=== PATIENT | female | born 1990 | race Caucasian/White ===

== ENCOUNTER 2017-02-15 17:17 | Emergency (ER) | payer MEDICARE, MEDICAID ==
[~2017-02-15 17:17] MED LIST: ADIPEX-P37.5 M2 PO; ADVAIR 25028 BLISTE1 INH; ADVAIR 50028 BLISTE1 PO; ALLERGY10 M3 PO; AMBIEN5 M1 PO; AMLODIPINE BES2.5 M1 PO; AMOXICILLIN875 M1 PO; ASPIRIN EC325 M1 PO; ASPIRIN81 M1 PO; ATENOLOL25 M1 PO; ATENOLOL50 M1 PO; ATIVAN0.5 M1 PO; BENZTROPINE MESY1 M1 PO; BUSPIRONE HCL15 M2 PO; BYSTOLIC5 M1 PO; CARDURA4 M1 PO; CELEXA10 M1 PO; CIPRO500 M2 PO; CLARITIN10 M8 PO; CLONAZEPAM0.5 M2 PO; CLONAZEPAM1 M2 PO; CLONIDINE HCL0.1 M2 PO; CLONIDINE HCL0.3 M1 PO; CLONIDINE PO; CLOZARIL100 M1 PO; CLOZARIL25 M1 PO; COGENTIN PO; COLACE100 M1 PO; CPAP; DEEP SEA45 M1 NS; DESMOPRESSIN; DESMOPRESSIN A0.2 M2 PO; DESMOPRESSIN PO; DIAZEPAM5 M2 VG; DOXAZOSIN MESYLA4 M2 PO; DULERA 200 MCG/13 G1 INH; EFFEXOR XR37.5 M1 PO; EPIPEN 2-P0.3 MG/0.3 IJ; EPIPEN 2-P0.3 MG/0.3 IM; GABAPENTIN300 M1 PO; GEODON20 M1 PO; GEODON60 M1 PO; GLUCOPHAGE500 M3 PO; HALOPERIDOL5 M1 PO; HEARTBURN RELIE75 M1 PO; HYDROCODON-ACE1 EA16 PO; HYDROXYZINE HCL25 M1 PO; IMPLANON; KEFLEX500 M4 PO; KLONOPIN1 M1 PO; KLONOPIN2 M1 PO; LEVAQUIN750 M1 PO; LEVSIN0.125 M1 PO; LEXAPRO20 M2 PO; LIDODERM700 MG TP; LITHIUM CARBON300 M2 PO; LITHOBID300 M1 PO; LORTAB 5-325 M1 EAC1; LOW DOSE ASPIRI81 M3 PO; MACROBID 100 M100 M1 PO; MAG-AL LIQUID30 M1 PO; MELATONIN1 M2 PO; MELATONIN10 M4 PO; MELATONIN10 M6 PO; MELATONIN3 M4 PO; MILK OF MAGNESIA PO; MINIPRESS1 M1 PO; MIRALAX17 G2 PO; MOBIC15 M2 PO; MUCINEX1200 MG PO; MULTI-VITAMIN1 EAC3 PO; MULTIVITAMINS1 EAC6 PO; MYBETRIQ PO; NALTREXONE HCL50 MG PO; NAPROSYN500 M1 PO; NAPROXEN500 M1 PO; NEXPLANON68 M1 SQ; NORCO 5-325 TA1 EACH PO; NORCO 7.5-3251 EACH PO; NORVASC2.5 M1 PO; OMEPRAZOLE20 M3 PO; PERCOCET 5-3251 EACH PO; PHENTERMINE H37.5 M2 PO; PREDNISONE20 M1 PO; PRILOSEC20 M1 PO; PROMETHAZINE HC25 M3 PO; PROVENTIL HFA6.7 G1 IH; PROVENTIL HFA6.7 G1 INH; RANITIDINE HCL75 M1 PO; REQUIP0.25 M1 PO; RESTORIL30 M1 PO; RISPERDAL M-TA0.5 MG PO; ROPINIROLE HC0.25 M1 PO; SEROQUEL X300 MG/TAB PO; SEROQUEL XR400 M2 PO; SEROQUEL300 M1 PO; SINGULAIR10 M1 PO; STRATTERA25 MG/CAP PO; STRATTERA40 MG/CAP PO; TOPAMAX25 M2 PO; TOPAMAX50 M3 PO; TOVIAZ8 M1 PO; TRAMADOL HCL50 M2 PO; TRAZODONE HCL100 M1 PO; TRAZODONE HCL50 M1 PO; ULTRAM50 M1 PO; ZOFRAN ODT4 MG PO; ZOFRAN ODT8 MG PO; [UNRECOGNIZED DRUG - OTHER] PO
[2017-02-15 18:53] LABS: URINE APPEARANCE CLEAR; URINE BILIRUBIN NEGATIVE (NEG); URINE BLOOD MODERATE (NEG); URINE COLOR YELLOW; URINE GLUCOSE (UA) NEGATIVE (NEG); URINE KETONE NEGATIVE (NEG); URINE LEUKOCYTE ESTERASE NEGATIVE (NEG); URINE NITRITE NEGATIVE (NEG); URINE PROTEIN NEGATIVE (NEG)
[2017-02-15 19:01] LABS: URINE BACTERIA 1+; URINE EPITHELIAL CELLS RARE /[HPF] (0-10); URINE WBC 0 /[HPF] (0-5)
[2017-02-15] MEDS ORDERED: NORCO 5/3251 TAB PO (19:42)
[2017-04-16] MEDS ORDERED: PERCOCET 5-3251 EACH PO (00:52)
[2017-05-01] MEDS ORDERED: ENDOCET 5-3251 EACH PO (18:18)
[2017-05-01] MEDS ORDERED: TRAZODONE HCL100 M1 PO (18:21)
[2017-05-01] MEDS ORDERED: PROMETHAZINE HC25 M3 PO (21:04)
[2017-05-13] MEDS ORDERED: NORCO 5-325 TA1 EACH PO (19:18)
[2017-05-13] MEDS ORDERED: CYCLOBENZAPRINE10 M1 PO (19:18)
[2017-06-11] MEDS ORDERED: KLONOPIN1 M1 (19:37)
[2017-06-11] MEDS ORDERED: LITHIUM CA300 MG/TAB PO (19:37)
[2017-06-11] MEDS ORDERED: ATIVAN1 M2 PO (19:37)
[2017-06-11] MEDS ORDERED: ULTRAM50 M1 PO (22:04)
[2017-06-12] MEDS ORDERED: PHENERGAN12.5 M2 PR (21:54)
[2017-06-12] MEDS ORDERED: ZOFRAN ODT4 MG PO (21:54)
[2017-06-21] MEDS ORDERED: NORCO 5-325 TA1 EACH PO (23:49)
[2017-06-26] MEDS ORDERED: SEROQUEL50 M1 PO (19:27)
[2017-06-26] MEDS ORDERED: WELLBUTRIN XL150 M1 PO (19:28)
== END 2017-02-15 19:49 ==
LOC: EDMED 17:17
PROVIDERS: Emergency Medicine
DX: R10.2 Pelvic and perineal pain (principal); I10 Essential (primary) hypertension; Z90.49 Acquired absence of other specified parts of digestive tract; Z79.899 Other long term (current) drug therapy
CPT/HCPCS: J1170

== ENCOUNTER 2017-04-13 23:24 | Inpatient (IN) | payer MEDICARE, MEDICAID ==
[~2017-04-13 23:24] MED LIST changes: +NORCO 5/3251 TAB PO
[2017-04-14 00:06] LABS: HCT-HEMATOCRIT 32.3 % (34.0-49.0); HGB-HEMOGLOBIN 10.7 gm/dl (12.0-15.5); IMMATURE GRANULOCYTES ABSOLUTE 0.01 tho/cmm (0-0.03); IMMATURE GRANULOCYTES PERCENT 0.2 % (0-0.3); LYMPH % 36.6 % (20-45); LYMPH ABSOLUTE COUNT 2.4 tho/cmm (0.8-4.5); MCH (MEAN CORPUSCULAR HGB) 29.3 pg (28.0-32.0); MCHC MEAN CORPUSCULAR HGB CONC 33.1 % (32.0-36.0); MCV (MEAN CELL VOLUME) 88.5 fl (82.0-96.0); MEAN PLATELET VOLUME 9.2 cmc (9.4-12.4); MONO % 9.7 % (0-12); MONOCYTE ABSOLUTE COUNT 0.6 tho/cmm (0.0-1.2); NEUTROPHIL ABSOLUTE COUNT 3.5 tho/cmm (1.6-8.0); NEUTROPHIL-AUTOMATED 3.5 tho/cmm (1.6-8.0); NEUTROPHILS % 53.5 % (40-80); PLATELET COUNT 264 tho/cmm (150-450); RED BLOOD COUNT 3.65 mil/cmm (4.00-5.20); RED CELL DISTRIBUTION WIDTH 14.3 % (12.4-16.4); WHITE BLOOD COUNT 6.5 tho/cmm (4.0-10.0)
[2017-04-14 00:23] LABS: ALB/GLOB RATIO 0.8 (0.8-2.0); ALBUMIN 2.9 g/dl (3.5-5.0); ALKALINE PHOSPHATASE 65 U/L (33-138); ALT/SGPT 30 U/L (12-78); ANION GAP 13 mmol/L (0-20); AST/SGOT 20 U/L (10-40); BILIRUBIN,TOTAL 0.2 mg/dl (0-1.5); BLOOD UREA NITROGEN 14 mg/dl (6-24); CALCIUM 8.5 mg/dl (8.5-10.5); CARBON DIOXIDE-VENOUS 24 mmol/L (22-32); CHLORIDE 104 mmol/l (96-110); CREATININE 0.89 mg/dl (0.50-1.10); GLUCOSE 127 mg/dL (70-110); POTASSIUM 3.2 mmol/L (3.7-5.1); SODIUM 138 mmol/L (135-145); eGFR VALUE FOR BLACK >90 mL/Min
[2017-04-14] MEDS ORDERED: SEROQUEL400 M1 PO (00:57)
[2017-04-14] MEDS ORDERED: DULERA 200 MCG/13 G1 INH (00:57)
[2017-04-14] MEDS ORDERED: CYCLOBENZAPRINE5 M1 PO (00:58)
[2017-04-14] MEDS ORDERED: HALOPERIDOL2 M1 PO (00:58)
[2017-04-14] MEDS ORDERED: PROVENTIL HFA6.7 G1 INH (00:59)
[2017-04-14 04:00] LABS: URINE BILIRUBIN NEGATIVE (NEG); URINE BLOOD SMALL (NEG); URINE GLUCOSE (UA) NEGATIVE (NEG); URINE KETONE NEGATIVE (NEG); URINE LEUKOCYTE ESTERASE POSITIVE (NEG); URINE NITRITE NEGATIVE (NEG); URINE PROTEIN MODERATE (NEG)
[2017-04-14 04:05] LABS: URINE APPEARANCE HAZY; URINE COLOR YELLOW
[2017-04-14 04:19] LABS: URINE BACTERIA 1+
[2017-04-14 06:34] LABS: ANION GAP 13 mmol/L (0-20); BLOOD UREA NITROGEN 12 mg/dl (6-24); CARBON DIOXIDE-VENOUS 24 mmol/L (22-32); CHLORIDE 105 mmol/l (96-110); CREATININE 0.78 mg/dl (0.50-1.10); GLUCOSE 162 mg/dL (70-110); POTASSIUM 3.4 mmol/L (3.7-5.1); SODIUM 139 mmol/L (135-145); eGFR VALUE FOR BLACK >90 mL/Min
[2017-04-14] MEDS ORDERED: NORCO 5-325 TA1 EACH PO (16:10)
[2017-04-14] MEDS ORDERED: MIRALAX17 G2 PO (16:10)
[2017-04-14] MEDS ORDERED: XARELTO20 M1 PO (16:15)
[2017-04-14] MEDS ORDERED: XARELTO15 M1 PO (16:15)
[2017-04-16] MEDS ORDERED: PERCOCET 5-3251 EACH PO (00:52)
[2017-05-01] MEDS ORDERED: ENDOCET 5-3251 EACH PO (18:18)
[2017-05-01] MEDS ORDERED: TRAZODONE HCL100 M1 PO (18:21)
[2017-05-01] MEDS ORDERED: PROMETHAZINE HC25 M3 PO (21:04)
[2017-05-13] MEDS ORDERED: CYCLOBENZAPRINE10 M1 PO (19:18)
[2017-05-13] MEDS ORDERED: NORCO 5-325 TA1 EACH PO (19:18)
[2017-06-11] MEDS ORDERED: KLONOPIN1 M1 (19:37)
[2017-06-11] MEDS ORDERED: ATIVAN1 M2 PO (19:37)
[2017-06-11] MEDS ORDERED: LITHIUM CA300 MG/TAB PO (19:37)
[2017-06-11] MEDS ORDERED: ULTRAM50 M1 PO (22:04)
[2017-06-12] MEDS ORDERED: ZOFRAN ODT4 MG PO (21:54)
[2017-06-12] MEDS ORDERED: PHENERGAN12.5 M2 PR (21:54)
[2017-06-21] MEDS ORDERED: NORCO 5-325 TA1 EACH PO (23:49)
[2017-06-26] MEDS ORDERED: SEROQUEL50 M1 PO (19:27)
[2017-06-26] MEDS ORDERED: WELLBUTRIN XL150 M1 PO (19:28)
== END 2017-04-14 18:20 | DRG 176 ==
LOC: EDMED 23:24 → EMR2 04-14 03:32 → 5WD 04-14 05:00
PROVIDERS: Emergency Medicine; ADMIT Hospitalist
PROC: B24BZZZ Ultrasonography of Heart with Aorta (ICD-10-PCS; principal; 2017-04-14)
PROC: 05HD33Z Insertion of Infusion Device into Right Cephalic Vein, Percutaneous Approach (ICD-10-PCS; 2017-04-14)
PROC: B54MZZA Ultrasonography of Right Upper Extremity Veins, Guidance (ICD-10-PCS; 2017-04-14)
DX: I26.99 Other pulmonary embolism without acute cor pulmonale (principal); E88.81 Metabolic syndrome and other insulin resistance; Z68.43 Body mass index [BMI] 50.0-59.9, adult; E66.01 Morbid (severe) obesity due to excess calories; I10 Essential (primary) hypertension; R60.0 Localized edema; D64.9 Anemia, unspecified; E87.6 Hypokalemia; R73.9 Hyperglycemia, unspecified; E28.2 Polycystic ovarian syndrome; J45.909 Unspecified asthma, uncomplicated; K58.9 Irritable bowel syndrome, unspecified; F25.9 Schizoaffective disorder, unspecified; F32.9 Major depressive disorder, single episode, unspecified; F90.9 Attention-deficit hyperactivity disorder, unspecified type; G47.33 Obstructive sleep apnea (adult) (pediatric); Z91.19 Patient's noncompliance with other medical treatment and regimen; Z86.718 Personal history of other venous thrombosis and embolism; Z79.01 Long term (current) use of anticoagulants; Z79.51 Long term (current) use of inhaled steroids; Z79.899 Other long term (current) drug therapy
CPT/HCPCS: C1751; C8929; J1650; J2270; J7030; Q9967

== ENCOUNTER 2017-04-16 01:05 | Emergency (ER) | payer MEDICARE, MEDICAID ==
[~2017-04-16 01:05] MED LIST changes: +CYCLOBENZAPRINE5 M1 PO; +HALOPERIDOL2 M1 PO; +SEROQUEL400 M1 PO; +XARELTO15 M1 PO; +XARELTO20 M1 PO
[2017-05-01] MEDS ORDERED: ENDOCET 5-3251 EACH PO (18:18)
[2017-05-01] MEDS ORDERED: TRAZODONE HCL100 M1 PO (18:21)
[2017-05-01] MEDS ORDERED: PROMETHAZINE HC25 M3 PO (21:04)
[2017-05-13] MEDS ORDERED: CYCLOBENZAPRINE10 M1 PO (19:18)
[2017-05-13] MEDS ORDERED: NORCO 5-325 TA1 EACH PO (19:18)
[2017-06-11] MEDS ORDERED: KLONOPIN1 M1 (19:37)
[2017-06-11] MEDS ORDERED: LITHIUM CA300 MG/TAB PO (19:37)
[2017-06-11] MEDS ORDERED: ATIVAN1 M2 PO (19:37)
[2017-06-11] MEDS ORDERED: ULTRAM50 M1 PO (22:04)
[2017-06-12] MEDS ORDERED: ZOFRAN ODT4 MG PO (21:54)
[2017-06-12] MEDS ORDERED: PHENERGAN12.5 M2 PR (21:54)
[2017-06-21] MEDS ORDERED: NORCO 5-325 TA1 EACH PO (23:49)
[2017-06-26] MEDS ORDERED: SEROQUEL50 M1 PO (19:27)
[2017-06-26] MEDS ORDERED: WELLBUTRIN XL150 M1 PO (19:28)
== END 2017-04-16 01:10 ==
LOC: EDMED 01:05
DX: I26.99 Other pulmonary embolism without acute cor pulmonale (principal); I10 Essential (primary) hypertension; F41.9 Anxiety disorder, unspecified; F39 Unspecified mood [affective] disorder; Z86.718 Personal history of other venous thrombosis and embolism; Z76.0 Encounter for issue of repeat prescription; Z79.899 Other long term (current) drug therapy